=== PATIENT | male | born 1970 | race Caucasian/White ===

== ENCOUNTER → 2021-07-03 08:48 | Outpatient (CLI) | payer OTHER, SELFPAY ==
--- NOTE | 2021-07-03 08:51 | DI.RAD.S_ITS ---
PROCEDURE: XR TOE RT MIN 2V INDICATIONS: right great toe pain and malformation TECHNIQUE: 3 views of the 1st toe(s) acquired. COMPARISON: None. FINDINGS: Bones: No fractures or dislocations. No suspicious bony lesions. There is [id number] 1st metatarsophalangeal joint degeneration with prominent periarticular osteophytes. There is bony erosion at the base of the 1st proximal phalanx. 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 Mild degeneration of the 1st interphalangeal joint. There is a prominent osteophyte or osteochondroma at the base of the 1st distal phalanx. Soft tissues: No suspicious soft tissue densities. Mild bunion. IMPRESSION: 1. [id number] 1st metatarsophalangeal joint degeneration. There is bony erosion at the base of the 1st proximal phalanx suggesting inflammatory arthritis such as erosive OA or gout. Recommend clinical correlation. 2. 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 Dictated by: Laith Nelson M.D. on 07/03/2021 at 9:40 Approved by: Laith Nelson M.D. on 07/03/2021 at 9:44
[2021-07-03 10:50] LABS: Add Manual Diff / Slide Review NO; Basophils Absolute Auto 0 /uL (0-100); Basophils Percent Auto 0.4 % (0-2); Eosinophils Absolute Auto 300 /uL (0-450); Hematocrit 46.6 % (41-53); Hemoglobin 15.4 g/dL (13.5-17.5); Lymphocytes Absolute Auto 5000 /uL (1100-4500); Lymphocytes Percent Auto 49.8 % (25-40); Mean Corpuscular Volume 84.9 fL (80-100); Monocytes Absolute Auto 700 /uL (0-900); Monocytes Percent Auto 7.4 % (3-14); Neutrophils Absolute Auto 3900 /uL (1500-7000); Neutrophils Percent Auto 39.4 % (50-75); Platelet Count 263 X10^3/uL (150-400); Red Blood Cell Count 5.49 X10^6/uL (4.5-5.9); Red Cell Distribution Width 14.7 % (11.6-14.8); White Blood Cell Count 9.9 X10^3/uL (4.5-11.0)
[2021-07-03 11:04] LABS: Alanine Aminotransferase 18 IU/L (<50); Albumin 4.3 g/dL (3.5-5.0); Albumin Globulin Ratio 1.3 (1.0-2.8); Alkaline Phosphatase 73 U/L (38-126); Aspartate Aminotransferase 23 IU/L (17-59); BUN Creatinine Ratio 18.8 (6-22); Bilirubin Total 0.8 mg/dL (0.2-1.3); Blood Urea Nitrogen 18 mg/dL (9-20); Calcium 8.6 mg/dL (8.4-10.2); Carbon Dioxide 28 mmol/L (22-32); Chloride 104 mmol/L (98-107); Cholesterol 231 mg/dL (140-199); Estimated Glomerular Filt Rate > 60 mL/min (>60); Globulin 3.2 g/dL (1.7-4.1); Glucose 88 mg/dL (70-100); HDL Cholesterol 40 mg/dL (40-60); HEMOLYSIS < 15 (0-50); LDL Cholesterol Calculated 159 mg/dL (<100); Potassium 4.1 mmol/L (3.4-5.1); Sodium 139 mmol/L (137-145); Total Protein 7.5 g/dL (6.3-8.2); Triglycerides 161 mg/dL (35-150)
[2021-07-03 11:31] LABS: Prostate Specific Antigen Scrn 0.503 ng/mL (0.1-4.0)
== END ==
PROVIDERS: PCP Family Medicine; Referring Provider Family Medicine; Visit Provider Family Medicine
DX: M19.071 Primary osteoarthritis, right ankle and foot (principal); M79.674 Pain in right toe(s); Z12.5 Encounter for screening for malignant neoplasm of prostate; Z13.220 Encounter for screening for lipoid disorders
CPT/HCPCS: 36415; 73660; 80053; 80061; 85025; G0103

== ENCOUNTER → 2022-02-11 10:58 | Outpatient (CLI) | payer OTHER, SELFPAY ==
[2022-02-11 12:16] LABS: COVID19 -Nasal RAPID Negative (Negative)
== END ==
PROVIDERS: PCP Family Medicine; Visit Provider Surgery
DX: Z01.812 Encounter for preprocedural laboratory examination (principal); Z20.822 Contact with and (suspected) exposure to COVID-19
CPT/HCPCS: 87635; C9803

== ENCOUNTER 2022-02-12 13:35 | Day surgery (SDC) | payer OTHER, SELFPAY ==
--- NOTE | 2022-02-12 | PATH_ITS ---
[facility] Accession Number: [id number] No. of containers..01 Tissue . 01 Material submitted: . colon - TRANSVERSE COLON . 01 Diagnosis: Transverse Colon, Biopsy: Colonic mucosa with a benign lymphoid aggregate. Additional levels were examined. Negative for active, chronic, and microscopic colitis. Negative for dysplasia and malignancy. MRV 02/19/2022 1404 Local . 01 Electronically signed: . Nanda Casey MD, Pathologist NPI- [id number] . 01 Gross description: . TRANSVERSE COLON: Received in formalin is 1 fragment(s) of fuchs, soft tissue measuring 0.4 x 0.3 x 0.1 cm submitted entirely in 1 cassette(s) /CPE 02/13/2022 0951 Local . 01 Pathologist provided ICD-10: Z12.11 . 01 CPT . 257681 Specimen Comment: A courtesy copy of this report has been sent to [phone] Performed at: 01 [facility] [address] [place] [address], [place], [place] [id number] MD Andrez Matias MD Phone: [phone]
[2022-02-12 14:05] VITALS: BP 133/85; PULSE 82; RESP 16; TEMP 36.2; O2SAT 98; BMI 39.3
--- NOTE | 2022-02-12 14:07 | PM.HP.1 ---
History of Present Illness History of Present Illness Date Patient Seen: 02/12/22 Time Patient Seen: 14:07 Chief complaint: Colonoscopy Narrative: The patient presents for colorectal screening. They have never had any previous examination for such. No personal or family history of colon cancer. On further history denies any recent gastrointestinal symptoms. No nausea, vomiting, abdominal pain, loss of appetite, unexplained weight loss, change in bowel habits, diarrhea, constipation, melena, hematochezia, or bright red blood per rectum. Patient History Medical History Acne Chicken pox (~1971) FHx: colon cancer Migraine OCD (obsessive compulsive disorder) (~2000) Pain of right great toe Pure hypercholesterolemia Screen for colon cancer Family & Social History Family History Grandfather Mental health problem Grandmother Mental health problem Grandfather Cancer Father No problems noted. Mother Cancer Tobacco & Substance use: Smoking Status Never smoker Meds Home Medications and Allergies Home Medications Medication Instructions Recorded Confirmed Type escitalopram oxalate 20 mg tablet 20 mg PO DAILY 02/12/22 02/12/22 History Allergies Allergy/AdvReac Type Severity Reaction Status Date / Time No Known Drug Allergies Allergy Verified 02/12/22 14:04 Exam Narrative Exam Narrative: General adult male alert oriented no acute distress Abdomen soft nontender nondistended Assessment & Plan Assessment & Plan narrative: The patient requires colorectal screening and colonoscopy is recommended. Technical details were discussed. Risks, benefits, alternatives explained. Risks including but not limited to myocardial infarction, aspiration, bleeding, pain, missed lesion, incomplete examination, need for further radiographic studies, colonic perforation, and need for major abdominal surgery were discussed. All questions were answered to their satisfaction, and they are in agreement with this plan. Time Spent With Patient Critical Care time: I spent a total of [] minutes of critical care time on this patient's care today; this time is exclusive of procedural time.
[2022-02-12] MEDS: LACTATED RINGERS 1,000 ML 42 ML IV (14:10)
--- NOTE | 2022-02-12 14:39 | PM.OP.COLON ---
Operative Date/Time/Diagnoses Date of procedure: 02/12/22 Time of procedure: 14:39 Pre-op diagnosis: Screening colonoscopy Post-op diagnosis: same Procedure & Clinicians Study performed: Colonoscopy Same procedure as scheduled: Yes Indications: Screening colorectal Surgeon: Michael Starks Procedure Notes Procedure in detail: The history and physical was performed/updated and the patient is ASA class is 2. The procedure was discussed in detail with the patient. Potential risks complications including infection, bleeding, missed diagnosis, perforation, need for surgery, and were explained. Their questions were answered and informed consent was obtained. Patient was brought to the procedure room and placed standard monitoring equipment. The patient's vital signs were monitored continuously throughout the entire procedure. Prior to starting time-out was performed. The patient was placed in the left lateral recumbent position. Procedural sedation was administered by anesthesia. Examination began with a thorough inspection of the perianal area there was no evidence of fissures, fistulae, external hemorrhoids or cutaneous malignancy. The colonoscopy scope was then placed into the anal canal and was advanced to the cecum, which was identified by the ileocecal valve, the appendiceal orifice and the confluence of the taenia. The scope was then slowly withdrawn examining colon thoroughly in all directions, irrigating it of any residual stool. FINDINGS 1. Transverse colon 3 mm polyp removed with biopsy forceps 2. Internal hemorrhoids The patient tolerated the procedure well. They will be discharged once criteria are met. The prep was of good/excellent quality. The withdrawl time was 7 minutes. Specimen(s): other (Transverse colon polyp) Impression: Colonic polyp Post-procedure Recommendations: High fiber diet Plan for aftercare: Follow-up dependent on pathology findings Disposition: same day surgery
[2022-02-12 14:42] VITALS: BP 128/82; PULSE 60; RESP 11; TEMP 36.4; O2SAT 98
[2022-02-12 14:47] VITALS: BP 132/81; PULSE 69; RESP 10; O2SAT 95
[2022-02-12 14:51] VITALS: BP 122/75; PULSE 86; RESP 13; O2SAT 97
[2022-02-12 14:56] VITALS: BP 110/78; PULSE 67; RESP 12; O2SAT 99
[2022-02-12 15:15] VITALS: BP 116/80; PULSE 68; RESP 16; TEMP 36.4; O2SAT 100
== END 2022-02-12 15:20 | disposition home or self-care (01) ==
PROVIDERS: PCP Family Medicine; Referring Provider Surgery; Visit Provider Surgery
PROC: 0DJD8ZZ Inspection of Lower Intestinal Tract, Via Natural or Artificial Opening Endoscopic (ICD-10-PCS; CPT 45378; principal; 2022-02-12 15:00)
DX: Z12.11 Encounter for screening for malignant neoplasm of colon (principal); K64.8 Other hemorrhoids
CPT/HCPCS: 45380; J2704